=== PATIENT | female | born 1940 | race African-American/Black ===

== ENCOUNTER → 2018-12-18 | Outpatient (CLI) | payer OTHER ==
[~2018-12-18] MED LIST: ALBU2.5V8 IH; ASPI-482 PO; LEVO100T PO; PROM118S5 PO; RANI150C PO
--- NOTE | 2018-12-18 14:31 | KCIC ---
Examination: MRI of the left shoulder without contrast COMPARISON: None available HISTORY: History of chronic left shoulder pain TECHNIQUE: Multiplanar, multisequence MR imaging of the left shoulder performed without contrast. FINDINGS: The long head of the biceps tendon is within the bicipital groove. The attachment of the long head of the biceps tendon to the superior labral anchor grossly appears intact. There is severe tendinosis of the supraspinatus tendon with bursal sided high-grade partial tear to near full-thickness tear measuring 9 mm in the mid supraspinatus tendon at its attachment with extension of fluid into subacromial subdeltoid bursa. No evidence of tendon retraction identified. Moderate tendinosis of the infraspinatus tendon. The labrum appears intact. There is mild fraying of the anterior and superior labrum. Moderate joint space loss identified in the glenohumeral joint with subchondral cystic changes identified in the glenoid Deep fissuring of cartilage identified in the glenohumeral joint. Moderate degenerative changes or chronic clavicular joint. The acromion is type II. Mild fatty atrophic changes of the supraspinatus, subscapularis tendon. There is mild obscuration of fat in the rotator interval. IMPRESSION: 1. A 9 mm high-grade bursal sided partial tear to near full-thickness tear of the mid supraspinatus tendon at its attachment. Severe tendinosis of the supraspinatus tendon. 2. Moderate tendinosis of the infraspinatus tendon. 3. Grade II chondromalacia glenohumeral joint. 4. Moderate degenerative changes glenohumeral joint and acromioclavicular joint. 5. Mild obscuration of fat in the rotator interval. Correlate for adhesive capsulitis. Electronically signed by: Delonte Harris MD (12/18/2018 2:27 PM) [id number]
== END | disposition home or self-care (01) ==
LOC: KCIC MRI 12:25
PROVIDERS: ATTEND Physical Medicine & Rehabilitation
DX: M94.212 Chondromalacia, left shoulder (principal); M19.012 Primary osteoarthritis, left shoulder; M75.102 Unspecified rotator cuff tear or rupture of left shoulder, not specified as traumatic
CPT/HCPCS: 73221

== ENCOUNTER → 2019-07-02 | Outpatient (CLI) | payer OTHER ==
--- NOTE | 2019-07-03 11:54 | RAD ---
DATE: July 02, 2019 EXAM: MAMMO DEVIN SCREENING BILATERAL HISTORY: Screening study. COMPARISON: 2013 This study was interpreted with the benefit of Computerized Aided Detection (CAD). 2-D digital mammographic views of both breasts were performed in the CC and MLO projections. 3-D digital tomosynthesis images of both breasts were performed in the CC and MLO projections and reviewed on a computer workstation. FINDINGS: Breast Density: HETERO The breast parenchyma is heterogenously dense, which could reduce sensitivity of mammography. Breast parenchyma level C.. There are no dominant suspicious masses, suspicious microcalcifications or evidence of architectural distortion. IMPRESSION: No mammographic indicators for malignancy. BI-RADS CATEGORY: 1 NEGATIVE RECOMMENDED FOLLOW-UP: 12M 12 MONTH FOLLOW-UP PQRS compliance statement: Patient information was entered into a reminder system with a target due date July 03, 2020 for the next mammogram. Mammography is a sensitive method for finding small breast cancers, but it does not detect them all and is not a substitute for careful clinical examination. A negative mammogram does not negate a clinically suspicious finding and should not result in delay in biopsying a clinically suspicious abnormality. "Our facility is accredited by the [employer] Mammography Program." The patient's breast density may affect the ability of mammography to detect breast cancer. There are 4 categories of breast density, A, B, C and D. Breast density A means that most of the breast tissue is replaced with adipose tissue and therefore is not dense. Breast density B means that the breast tissue is mildly dense and scattered. Breast density C means that the breast tissue is heterogeneously dense. Breast density D means that the breast tissue is very dense. Breast densities especially C and D may decrease the sensitivity of mammography to detect breast cancer. Therefore, the patient may benefit from 3-D breast mammography (3D breast tomography) as a part of their screening mammogram. Insurance may or may not pay for this additional imaging. The patient's breast density based on today's mammogram is category C.
== END | disposition home or self-care (01) ==
LOC: MAMMO 10:30
PROVIDERS: ATTEND Family Medicine
DX: Z12.31 Encounter for screening mammogram for malignant neoplasm of breast (principal)
CPT/HCPCS: 77063; 77067

== ENCOUNTER → 2019-12-08 | Outpatient (CLI) | payer MEDICARE, OTHER ==
--- NOTE | 2019-12-08 21:09 | RAD ---
Thoracic spine 3 views. HISTORY: Right flank pain, lateral lower rib pain 3 views were taken of the thoracic spine. There is slight scoliosis and kyphosis. 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 There is hypertrophic changes. A bony destructive process is not identified. There is no acute fracture. There is degenerative disc disease in the lower cervical spine. IMPRESSION: 1. Degenerative and hypertrophic changes in the thoracic spine. 2. No acute fracture. Electronically signed by: Chaitanya Munoz MD (12/08/2019 9:07 PM) [facility]
--- NOTE | 2019-12-08 23:41 | RAD ---
Right RIBS with PA chest. HISTORY: Right flank pain, lower rib pain PA view was taken of the chest. There is no pneumothorax or pleural effusion. Lungs are clear. Heart is normal in size. AP and oblique views were taken of the right ribs. An acute rib fracture is not definitively identified. IMPRESSION: 1. No acute chest disease. 2. A rib fracture is not identified. Electronically signed by: Chaitanya Munoz MD (12/08/2019 11:39 PM) [facility]
== END | disposition home or self-care (01) ==
LOC: RAD 14:33
PROVIDERS: ATTEND Family Medicine
DX: M50.33 Other cervical disc degeneration, cervicothoracic region (principal); M41.84 Other forms of scoliosis, thoracic region
CPT/HCPCS: 71101; 72072

== ENCOUNTER → 2021-06-06 | Outpatient (CLI) | payer MEDICARE ==
[~2021-06-06] MED LIST changes: +LEVO-101 PO; -LEVO100T PO
--- NOTE | 2021-06-06 16:59 | RAD ---
MG BILAT SCREEN+DEVIN 06/06/2021 12:51 PM INDICATION: Asymptomatic screening mammogram. COMPARISON: 07/02/2019, 10/21/2014. TECHNIQUE: 3D tomosynthesis was performed in CC and MLO projections. 2D views were obtained from the 3D data. CAD was utilized as needed. FINDINGS: Breast density: Category B: There are scattered areas of fibroglandular density. Right breast: There are no suspicious microcalcifications, masses or areas of architectural distortio n. Left breast: There are no suspicious microcalcifications, masses or areas of architectural distortion . Bilateral mammogram is compared to prior examinations appears unchanged. IMPRESSION: Negative bilateral mammogram. BI-RADS category: 1; Negative Recommendations: Recommend annual screening mammography in one year. Electronically signed by: Stormy Marcus MD (06/06/2021 4:56 PM) [id number]
== END ==
LOC: MAMMO 12:46
PROVIDERS: ATTEND Family Medicine
DX: Z12.31 Encounter for screening mammogram for malignant neoplasm of breast (principal)
CPT/HCPCS: 77063; 77067